=== PATIENT | female | born 1965 | race Caucasian/White ===

== ENCOUNTER 2024-07-08 20:07 | Inpatient (IN) | payer SELFPAY ==
[2024-07-08 20:17] VITALS: PULSE 110; O2SAT 96
--- NOTE | 2024-07-08 20:17 | PC.NURSE ---
[facility] @[facility]14
--- NOTE | 2024-07-08 20:32 | XR_ITS ---
PROCEDURE INFORMATION: Exam: XR Chest Exam date and time: 07/08/2024 9:47 PM Age: 58 years old Clinical indication: Pain; Chest pressure; Additional info: SOB TECHNIQUE: Imaging protocol: Radiologic exam of the chest. Views: 1 view. COMPARISON: No relevant prior studies available. FINDINGS: Lungs: Underlying interstitial markings/fibrotic changes most pronounced in right mid to lower lung zones. Chronic right pulmonary volume loss. No consolidation. Pleural spaces: Likely chronic right pleural thickening.No pneumothorax. Heart/Mediastinum: Unremarkable. No cardiomegaly. Bones/joints: Unremarkable. IMPRESSION: Likely chronic changes.
--- NOTE | 2024-07-08 20:32 | XR_ITS ---
PROCEDURE INFORMATION: Exam: XR Right Hip Exam date and time: 07/08/2024 9:47 PM Age: 58 years old Clinical indication: Condition or disease; Abscess; Other: Large wound on lateral hip; Additional info: Right hip pain TECHNIQUE: Imaging protocol: Radiologic exam of the right hip. Views: 2 or 3 views hip with pelvis when performed. COMPARISON: CR XR HIP RT 2-3V W/PELVIS 07/08/2024 9:47 PM FINDINGS: Bones/joints: Diffuse, poorly defined sclerotic lesions throughout visualized bony pelvis and lumbosacral spine. No acute cortical disruption or fracture line identified. Osteopenia. Anatomic alignment. Soft tissues: No radiopaque foreign body. IMPRESSION: 1. Diffuse sclerotic lesions suspicious for metastases. 2. No soft tissue radiopaque foreign body or discrete air collection identified by radiographs.
--- NOTE | 2024-07-08 20:41 | P.HP_ITS ---
<Statement entered by Luis Daniel Saenz MD - 07/09/24 14:14> Personally interviewed, examined patient and agree with plan of care as outlined by the [employer]. History of Present Illness *Admission Date: 07/08/24 *Reason for visit:: NSTEMI *History of present illness: This is a 58-year-old female who has a past medical history significant for diabetes, hypertension, breast cancer, COPD who presents from [facility] due to being found down for 3 days. Due to patient being found down for 3 days, she was transition to [facility] for evaluation. While at [facility], patient was noted to have a high troponin of 370, she was positive for urinary tract infection, and patient CPK was elevated. Due to these findings, patient was transition to p.o. tomorrow for further management. During my evaluation of the patient, patient states she fell 3 days ago. She states she slid out of the bed and just laid on the floor. She states she remembers the fall. She states that she attempted to get up multiple times but could not get up. Her offered to help but she did not accept his help. She states he would bring her supplement to eat or drink. She states that she has been having some lower extremity weakness for some time. She does not endorse to getting progressively worse she just notes that it has been there for prolonged period of time. She also voices having some pain to her right hip. Patient states she has chronic pain to her right hip but she noticed that it was more intense after a fall. She is currently denying any syncope, lightheadedness, dizziness, chest pain, shortness of breath, dyspnea, nausea, vomiting, PND, orthopnea, or diarrhea. Additional pertinent vitals obtained at [facility] include a potassium of 3.4, blood glucose of 190, calcium of 12, total bilirubin 1.9, white blood cells too numerous to count with urinalysis and urinalysis positive for nitrates, EKG showed a sinus tach, QTc of 406, Q waves in the inferior leads, possible left ventricular hypertrophy, biphasic T waves in the anterolateral, normal axis, alkaline phosphatase 113, and troponin was 372. [facility] Disclaimer: The information contained in this section may have been updated after the patient was seen, as this information can be updated by other users. Social History Smoking Status: Current every day smoker alcohol intake: never current occupational status: unemployed Travel in the last 8 weeks: None Review of Systems Review of Systems Review of systems:: pertinent systems reviewed and negative unless documented below Constitutional Constitutional: Reports poor appetite Eyes Eyes: Reports blurry vision and Reports loss of vision ENT Ears, Nose, Mouth, and Throat: Reports system reviewed and no additional complaints, except as documented *Cardiovascular Cardiovascular: Reports system reviewed and no additional complaints, except as documented *Respiratory Respiratory: Reports cough *Gastrointestinal Gastrointestinal: Reports system reviewed and no additional complaints, except as documented *Genitourinary Genitourinary: Reports system reviewed and no additional complaints, except as documented *Musculoskeletal Musculoskeletal: Reports atrophy and Reports muscle weakness Integumentary/Breasts Skin/Breast: Reports dry skin, Reports hirsutism and Reports skin ulcer *Neurologic Neurologic: Reports loss of vision Endocrine Endocrine: Reports system reviewed and no additional complaints, except as documented Hematologic/Lymphatic Hematologic/Lymphatic: Reports system reviewed and no additional complaints, except as documented Allergic/Immunologic Allergic/Immunologic: Reports system reviewed and no additional complaints, except as documented Meds Home Medications and Allergies Home Medications ?Medication ?Instructions ?Recorded ?Confirmed ?Type No Known Home Medications 07/08/24 07/08/24 History New Prescriptions to Start Prescriptions: Allergies Allergy/AdvReac Type Severity Reaction Status Date / Time INGREDIENT: NO KNOWN - NO Allergy Unknown Uncoded 05/26/17 15:19 KNOWN DRUG ALLERGY Exam Constitutional Constitutional: no acute distress, disheveled and cooperative *Routine HEENT Exam Head: Present normocephalic Eye: Present EOMI ENT: Present mucous membranes moist Comments: Right eye blindness *Routine Neck Exam Neck: Present supple and trachea midline *Routine Respiratory Exam Respiratory: Present CTA bilaterally, normal respiratory effort, able to speak in complete sentences and symmetric chest movement *Routine Cardiovascular Exam Cardiovascular: Present RRR, Normal S1 and Normal S2 *Routine Abdominal Exam Abdominal: Present soft and normoactive bowel sounds *Routine Rectal Exam Rectal:: deferred *Routine Genitalia Exam Genitalia:: deferred *Routine Extremities Exam Extremities: Present extremity cold to touch Comments: Capillary refills greater than 3 seconds Routine Back/Spine/Pelvis Exam Pelvis: Present buttock tenderness Back image: 2 1. Deep tissue injury *Routine Skin Exam Skin: Present dry and wounds Comments: Patient has deep tissue wounds to entire buttocks *Routine Neurological Exam Neurological: Present alert, oriented X3 and CN II-XII intact Routine Psychiatric Exam Psychiatric: Present normal affect, cooperative, good insight and good judgment H&P: Result Impressions This is a 58-year-old female who presents from [facility] after being found down for 3 days. Patient had elevated CPK and elevated troponin and was diagnosed with NSTEMI. Patient voicing decreased to bilateral lower extremity weakness. She is without any syncope or trauma to the spine. Patient is currently without any focal weakness or deficit she does have some muscle wasting to bilateral lower extremities. Assessment and Plan *Assessment and plan (1) NSTEMI (non-ST elevated myocardial infarction): Status: Acute Category: Medical Code(s): I21.4 - Non-ST elevation (NSTEMI) myocardial infarction (2) Rhabdomyolysis: Status: Acute Category: Medical Code(s): M62.82 - Rhabdomyolysis (3) Fall: Status: Acute Category: Medical Code(s): W19.XXXA - Unspecified fall, initial encounter (4) Dehydration: Status: Acute Category: Medical Code(s): E86.0 - Dehydration (5) Right hip pain: Status: Acute Category: Medical Code(s): M25.551 - Pain in right hip (6) Weakness: Status: Acute Category: Medical Code(s): R53.1 - Weakness (7) Deep tissue injury: Status: Acute Category: Medical Code(s): T14.8XXA - Other injury of unspecified body region, initial encounter (8) UTI (urinary tract infection): Status: Acute Category: Medical Code(s): N39.0 - Urinary tract infection, site not specified Plan Assessment: NSTEMI -Will obtain EKG -Trend troponin 1 every 6 hours -Will give therapeutic dosing of Lovenox 1 mg/kg of body weight twice daily -Consult cardiology -2D echo Rhabdomyolysis -Will trend CPK -Normal saline at 150 mL an hour -Promote early mobility Dehydration -Normal saline at 150 mL down Right hip pain -Will obtain plain views of the pelvis Weakness -Will obtain CT scan of the lumbar spine without any contrast -Physical therapy -Occupational Therapy Deep tissue injury -Skin protocol -Turn every 2 -Place protective barrier Urinary tract infection -Rocephin 1 g daily -Obtain urinalysis with reflex micro [facility]: [facility] Up to chair twice daily Fall precaution SCDs to bilateral lower extremity Daily weight Straight cath x 1 Vital signs every 4 hours Cardiac/1800 ADA diet Chest x-ray Obtain CPK, CMP, CBC, magnesium, PT/INR now CBC/BMP daily Sliding scale insulin before meals and at bedtime with mild scale coverage 2 mg morphine IV push every 2 hours as needed severe pain 21 mg nicotine patch daily 4 mg Zofran IV push to 8 hours. Nausea vomiting Full code We will trend patient's troponin 1 and likely this is a type II troponin leak however she may benefit from cath because she does have some risk factors to include diabetes and hypertension I have discussed this case with attending physician dr. Saenz
[2024-07-08 20:54] VITALS: BP 159/96; PULSE 105; RESP 18; TEMP 37.4; O2SAT 96; BMI 21.9
[2024-07-08 20:58] LABS: Basophils % 0.6 % (0.1-2.0); Eosinophils % 0.6 % (0.1-12.0); Hematocrit 43.7 % (37.0-47.0); Hemoglobin 13.9 g/dL (12.2-16.2); Lymphocytes # 1.4 K/mm3 (0.7-4.5); Lymphocytes % 20.8 % (10-50); Mean Corpuscular HGB Conc 31.8 g/dL (31.8-35.4); Mean Corpuscular Hemoglobin 27.7 pg (27.0-31.2); Mean Corpuscular Volume 87.2 fl (81-99); Mean Platelet Volume 9.7 fl (7.4-10.4); Monocytes # 0.5 K/mm3 (0.1-1.0); Monocytes % 6.6 % (1.7-9.3); Neutrophils # 4.9 K/mm3 (1.8-7.8); Neutrophils % 71.1 % (37.0-80.0); Platelet Count 253 K/mm3 (142-424); Red Blood Count 5.01 M/mm3 (4.20-5.40); Red Cell Distribution Width 13.8 % (11.5-17.5); White Blood Count 6.8 K/mm3 (4.8-10.8)
[2024-07-08 21:08] LABS: INR 1.06 (0.9-1.1); Prothrombin Time 11.5 seconds (9.2-12.1)
[2024-07-08 21:12] LABS: Alanine Aminotransferase 16 U/L (12-78); Albumin Level 3.6 g/dl (3.5-5.0); Albumin/Globulin Ratio 1.1 (1.1-1.8); Alkaline Phosphatase 347 U/L (38-126); Anion Gap 11.4 mEq/L (5-15); Aspartate Amino Transferase 32 U/L (14-36); Bilirubin,Total 1.3 mg/dl (0.2-1.3); Blood Urea Nitrogen 14 mg/dl (7-17); Calcium 10.4 mg/dl (8.4-10.2); Carbon Dioxide 26 mmol/L (22.0-30.0); Chloride 104 mmol/L (98-107); Estimated Glomerular Filt Rate 126 ml/min (>60); GFR (African American) 152 ML/MIN (>60); Globulin 3.2 g/dL (1.3-3.2); Glucose 142 mg/dl (74-100); Potassium 3.4 mmoL/L (3.5-5.1); Sodium 138 mmol/L (136-145); Total Protein,Serum 6.8 g/dl (6.3-8.2)
[2024-07-08 21:30] LABS: Creatinine Clearance Estimated 110 mL/min (50-200); Troponin I 0.23 ng/ml (0.00-0.034)
--- NOTE | 2024-07-08 21:30 | PC.NURSE ---
Lab reported critical troponin 0.23, Dr. Disla notified
--- NOTE | 2024-07-08 21:34 | ECG_ITS ---
APPROVED REPORT Exam: Resting ECG HR:131 bpm ECG Measurements Heart Rate 131 AXES QRSd 104 QRS 12 QT 298 T 98 QTc 375 Conclusion ATRIAL FIBRILLATION WITH RAPID VENTRICULAR RESPONSE ST ELEVATION, CONSIDER INFERIOR INJURY [MARKED ST ELEVATION W/O NORMALLY INFLECTED T-WAVE IN II/aVF] ACUTE MD UNCONFIRMED REPORT Electronically signed by : Twin Beach MD 07/10/2024 12:56:06
[2024-07-08] MEDS: ENOXAPARIN 100MG/ML SYRINGE 60 MG SUBCUT (21:53)
[2024-07-08 21:59] LABS: Creatine Kinase 64 U/L (30-135)
--- NOTE | 2024-07-08 22:04 | PC.NURSE ---
Pt discharged off medr floor to ICU unit via bed @22:04
--- NOTE | 2024-07-08 22:09 | CT_ITS ---
PROCEDURE INFORMATION: Exam: CTA Chest With Contrast Exam date and time: 07/08/2024 11:46 PM Age: 58 years old Clinical indication: Shortness of breath; Additional info: SOB TECHNIQUE: Imaging protocol: Computed tomographic angiography of the chest with contrast. Exam focused on the arteries. 3D rendering (Not supervised by radiologist): MIP and/or 3D reconstructed images were created by the technologist. Radiation optimization: All CT scans at this facility use at least one of these dose optimization techniques: automated exposure control; mA and/or kV adjustment per patient size (includes targeted exams where dose is matched to clinical indication); or iterative reconstruction. Contrast material: ISOVUE; Contrast volume: 70 ml; Contrast route: INTRAVENOUS (IV); COMPARISON: CR XR CHEST PORTABLE 07/08/2024 9:47 PM FINDINGS: Pulmonary arteries: No central or segmental pulmonary arterial intraluminal filling defect identified. Aorta: Atherosclerotic calcification of thoracic aorta without aneurysm or dissection. Thyroid: Asymmetrically enlarged and heterogeneous right thyroid gland. Lungs: Chronic right pulmonary volume loss with rightward mediastinal shift. Underlying emphysematous changes. Patchy air trapping. Pleural spaces: Semi concentric irregular chronic right pleural thickening with chronic rounded atelectasis abutting posterior pleura measuring 8.1 x 3.4 x 4.5 cm. Heart: Unremarkable. No cardiomegaly. No pericardial effusion. Coronary arteries: Atherosclerotic calcification of coronary arteries. Lymph nodes: Enlarged retroperitoneal lymph nodes in visualized abdomen. Bones/joints: Diffuse sclerotic lesions throughout visualized osseous structures. Soft tissues: Unremarkable. IMPRESSION: 1. No central or segmental pulmonary arterial embolism identified. 2. Chronic semi concentric irregular right pleural thickening with large rounded atelectasis and secondary pulmonary volume loss with rightward mediastinal shift. 3. Air trapping on underlying emphysematous changes. 4. Etiology indeterminate diffuse sclerotic lesions suspicious for metastases and suspected retroperitoneal lymphadenopathy in visualized abdomen. 5. Heterogeneously enlarged right thyroid lobe possibly reflecting underlying nodule. Consider nonurgent sonographic further imaging evaluation is clinically indicated. COMMENTS: The presence of pulmonary emphysema on CT is an independent risk factor for lung cancer. In the absence of a history or active diagnosis of lung cancer, it is recommended that this patient with emphysema be evaluated for enrollment in a low dose CT lung cancer screening program.
[2024-07-08 22:11] VITALS: PULSE 130
[2024-07-08] MEDS: ESMOLOL HCL 100 MG/10 ML VIAL 29 MG IV (22:18)
[2024-07-08] MEDS: ESMOLOL HCL IN STERILE WATER 2,500 MG/250 ML PIGGYBACK 17.4 MG IV (22:20)
--- NOTE | 2024-07-08 22:30 | PC.NURSE ---
Report given to NAOMI Ramos
[2024-07-08] MEDS: 0.9 % SODIUM CHLORIDE 1000ML 1,000 ML 150 ML IV (22:37)
[2024-07-08 22:41] LABS: POC Glucose,Bedside 145 (70-110)
--- NOTE | 2024-07-08 22:52 | P.EN_ITS ---
Per my interpretation, EKG obtained shows an inferior infarct there is ST segment elevation in leads II, III and aVF with reciprocal changes in leads 4 5; contacted paperhanger assistant on-call; he recommended starting esmolol drip and repeating EKG once heart rates at 70. Discussed findings with attending. Will implement the interventions paperhanger assistant has provide. And repeat EKG once heart rates in the 70s
[2024-07-08] MEDS: NICOTINE 21MG/24HR PATCH 21 MG TD (22:58)
[2024-07-08 23:00] VITALS: BP 149/84; PULSE 91; RESP 20; O2SAT 97
--- NOTE | 2024-07-08 23:07 | PC.WOUNDNOTE ---
right hip and buttocks left buttock
[2024-07-08] MEDS: SODIUM CHLORIDE 0.9% 10ML SYR (RAD ONLY) 10 ML IV (23:48)
[2024-07-08] MEDS: IOPAMIDOL-370 (76%);100ML BOTTLE 70 ML IV (23:48)
[2024-07-08] MEDS: 0.9 % SODIUM CHLORIDE 50 ML VIAL IV (23:49)
[2024-07-09] VITALS (26 sets, daily range): BP systolic 129–181; BP diastolic 69–97; PULSE 70–100; RESP 12–23; TEMP 36.6–37; O2SAT 1–100; BMI 22.4
[2024-07-09 03:28] LABS: Microscopic, Urine URINE MICROSCOPIC (MICROSCOPIC)
[2024-07-09 03:34] LABS: Appearance,Urine CLOUDY (Clear); Blood, Urine 3+ (Negative); Color,Urine AMBER (Yellow); Glucose,Urine (UA) TRACE (Negative); Ketones,Urine 1+ (Negative); Leukocyte Esterase,Urine 1+ (Negative); Nitrate,Urine POSITIVE (Negative); PH,Urine 5.5 (5.0-8.5); Protein,Urine 2+ (Negative)
[2024-07-09 03:37] LABS: Bilirubin,Urine 1+ (Negative)
[2024-07-09 03:45] LABS: Bacteria,Urine 1+ /lpf; RBC,Urine 20-50 #/hpf (0-3); Squamous Epithelial Cell,Urine Occasional #/hpf (0-5)
[2024-07-09] MEDS: ESMOLOL HCL IN STERILE WATER 2,500 MG/250 ML PIGGYBACK 34.81 MG IV (04:47)
[2024-07-09 05:59] LABS: Basophils % 0.5 % (0.1-2.0); Lymphocytes # 1.3 K/mm3 (0.7-4.5); Monocytes # 0.5 K/mm3 (0.1-1.0)
[2024-07-09 06:03] LABS: Eosinophils # 0.1 K/mm3 (0.0-0.4); Eosinophils % 0.8 % (0.1-12.0); Hematocrit 40.9 % (37.0-47.0); Hemoglobin 12.8 g/dL (12.2-16.2); Lymphocytes % 19.7 % (10-50); Mean Corpuscular HGB Conc 31.3 g/dL (31.8-35.4); Mean Corpuscular Hemoglobin 27.8 pg (27.0-31.2); Mean Corpuscular Volume 88.7 fl (81-99); Mean Platelet Volume 10.1 fl (7.4-10.4); Neutrophils # 4.7 K/mm3 (1.8-7.8); Neutrophils % 71.5 % (37.0-80.0); Platelet Count 234 K/mm3 (142-424); Red Blood Count 4.61 M/mm3 (4.20-5.40); Red Cell Distribution Width 13.9 % (11.5-17.5); White Blood Count 6.6 K/mm3 (4.8-10.8)
[2024-07-09 06:04] LABS: Chloride 103 mmol/L (98-107); Sodium 136 mmol/L (136-145)
[2024-07-09 06:05] LABS: Potassium 3.3 mmoL/L (3.5-5.1)
[2024-07-09 06:07] LABS: Blood Urea Nitrogen 12 mg/dl (7-17); Creatinine Clearance Estimated 137 mL/min (50-200); Estimated Glomerular Filt Rate 163 ml/min (>60); GFR (African American) 197 ML/MIN (>60)
[2024-07-09 06:08] LABS: Anion Gap 10.3 mEq/L (5-15); Calcium 9.9 mg/dl (8.4-10.2); Carbon Dioxide 26 mmol/L (22.0-30.0); Creatine Kinase 63 U/L (30-135); Glucose 155 mg/dl (74-100)
--- NOTE | 2024-07-09 06:36 | PC.NURSE ---
pt alert and oriented, pt has intermittent cough, rhonci on left lung 3lpm via nasal cannula. pt has purewick in place. pt has wounds noted to bilateral gluteaus dressings in place. pts spouse at bedside. call light within reach
[2024-07-09] MEDS: humaLOG 100 UNITS/ML 10ML VIAL (SSI) SUBCUT (06:45)
--- NOTE | 2024-07-09 08:22 | PC.NURSE ---
pt room air O2 saturation is 90% at rest.
[2024-07-09 09:10] LABS: Troponin I 0.15 ng/ml (0.00-0.034)
--- NOTE | 2024-07-09 09:22 | XR_ITS ---
PROCEDURE INFORMATION: Exam: XR Left Femur Exam date and time: 07/09/2024 9:22 AM Age: 58 years old Clinical indication: Injury or trauma; Fall; Blunt trauma; Thigh or upper leg; Left; Additional info: Post fall TECHNIQUE: Imaging protocol: Radiologic exam of the left femur. Views: 2 views. COMPARISON: No relevant prior studies available. FINDINGS: Bones/joints: Unremarkable. No acute fracture. Soft tissues: Unremarkable. IMPRESSION: No acute findings.
--- NOTE | 2024-07-09 09:22 | XR_ITS ---
PROCEDURE INFORMATION: Exam: XR Right Femur Exam date and time: 07/09/2024 9:22 AM Age: 58 years old Clinical indication: Injury or trauma; Fall; Blunt trauma; Thigh or upper leg; Right; Additional info: Post fall TECHNIQUE: Imaging protocol: Radiologic exam of the right femur. Views: 2 views. COMPARISON: CR XR HIP RT 2-3V W/PELVIS 07/08/2024 9:47 PM FINDINGS: Bones/joints: Unremarkable. No acute fracture. Soft tissues: Unremarkable. IMPRESSION: No acute findings.
[2024-07-09 09:28] LABS: Chol/HDL Ratio 4.8 (1-3.5); Cholesterol 125 mg/dl (140-200); HDL Cholesterol 26 mg/dl (40-60); Triglycerides 114 mg/dl (30-150); VLDL Cholesterol 23 mg/dL (0-40)
[2024-07-09 09:29] LABS: Thyroid Stimulating Hormone 1.53 uIU/mL (0.465-4.68)
[2024-07-09] MEDS: METOPROLOL TARTRATE 25MG TABLET 25 MG PO ×2 (09:35→20:24)
[2024-07-09] MEDS: DOCUSATE SODIUM 100 MG CAPSULE PO (09:35)
[2024-07-09] MEDS: ASPIRIN EC 81MG TABLET 81 MG PO (09:35)
[2024-07-09] MEDS: ATORVASTATIN 40MG TABLET 40 MG PO (09:35)
[2024-07-09] MEDS: ENOXAPARIN 60MG/0.6ML SYRINGE 60 MG SUBCUT ×2 (09:35→22:00)
--- NOTE | 2024-07-09 09:36 | HMH.PHAINT1 ---
Pharmacy Intervention Comments: MEDICATION RECONCILIATION COMPLETE. PER DAJA SALGADO, PATIENT STATES SHE DOES NOT TAKE ANY MEDICATIONS AT HOME.
[2024-07-09] MEDS: ACETAMINOPHEN 325MG TAB 650 MG PO (09:37)
[2024-07-09] MEDS: 0.9 % SODIUM CHLORIDE 1000ML 1,000 ML 150 ML IV (09:37)
[2024-07-09 09:39] LABS: Direct LDL Cholesterol 68.22 mg/dL (100-129)
--- NOTE | 2024-07-09 09:40 | ECG_ITS ---
APPROVED REPORT Exam: Resting ECG HR:96 bpm ECG Measurements Heart Rate 96 AXES [place] 164 P 60 QRSd 110 QRS -12 QT 341 T 125 QTc 394 Conclusion SINUS RHYTHM POSSIBLE INFERIOR MYOCARDIAL INFARCTION , PROBABLY OLD [30 ms Q WAVE IN II/aVF] MODERATE T-WAVE ABNORMALITY, CONSIDER LATERAL ISCHEMIA [-0.1+ mV T-WAVE IN I/aVL/V5/V6] ABNORMAL ECG UNCONFIRMED REPORT Electronically signed by : Twin Beach MD 07/10/2024 12:55:49
[2024-07-09] MEDS: CEFTRIAXONE SODIUM 1 GM in 0.9 % SODIUM CHLORIDE 50 ML IV (09:45)
[2024-07-09 09:48] LABS: Vitamin B12 620 pg/mL (239-931)
[2024-07-09 10:16] LABS: Hemoglobin A1C 7.4 % (4.0-6.0)
--- NOTE | 2024-07-09 10:20 | PC.NURSE ---
All care and documentation for pt by Meg Jimenez RN was reviewed by Ha Bhandari. All titrations of medications were completed under the direct supervision of Tiffany SALGADO
[2024-07-09 11:09] LABS: POC Glucose,Bedside 96 (70-110)
--- NOTE | 2024-07-09 11:25 | PC.NURSE ---
Addendum entered by Rachel Jimenez RN 07/09/24 11:39: ra sat > 90% while awake. while sleeping sats drop around 88%. 1l nc placed on pt while at sleeping with sats currently at 96%. Original Note: per ce toney esmolol. hr 78 b/p 131/73
--- NOTE | 2024-07-09 13:20 | HMH.PTEV ---
Physical Therapy Evaluation Rehab PT IP Evaluation Start: 07/08/24 20:32 Freq: ONCE Status: Active Protocol: Document 07/09/24 13:01 MELINDATARI (Rec: 07/09/24 13:20 EVER [id number]) Subjective/History History History Per H&P, This is a 58-year- old female who has a past medical history significant for diabetes, hypertension, breast cancer, COPD who presents from [facility] due to being found down for 3 days. Due to patient being found down for 3 days, she was transition to [facility] for evaluation. While at [facility], patient was noted to have a high troponin of 370, she was positive for urinary tract infection, and patient CPK was elevated. Due to these findings, patient was transition to p.o. tomorrow for further management. During my evaluation of the patient, patient states she fell 3 days ago. She states she slid out of the bed and just laid on the floor. She states she remembers the fall. She states that she attempted to get up multiple times but could not get up. Her offered to help but she did not accept his help. She states he would bring her supplement to eat or drink. She states that she has been having some lower extremity weakness for some time. She does not endorse to getting progressively worse she just notes that it has been there for prolonged period of time. She also voices having some pain to her right hip. Patient states she has chronic pain to her right hip but she noticed that it was more intense after a fall. She is currently denying any syncope, lightheadedness, dizziness, chest pain, shortness of breath, dyspnea, nausea, vomiting, PND, orthopnea, or diarrhea. Additional pertinent vitals obtained at [facility] include a potassium of 3.4, blood glucose of 190, calcium of 12, total bilirubin 1.9, white blood cells too numerous to count with urinalysis and urinalysis positive for nitrates, EKG showed a sinus tach, QTc of 406, Q waves in the inferior leads, possible left ventricular hypertrophy, biphasic T waves in the anterolateral, normal axis, alkaline phosphatase 113, and troponin was 372. Subjective Subjective The pt is orientedx3. Family present. Pt and pt's provide differing subjective histories. Pt reports she was lying on the floor for 3 days prior to going to the hospital . Her reports that she was only there for a couple of hours. Pt reports that she has not attempted to walk in months. Reports that her legs are not strong enough. Reports that prior to that, she was using a walker. She reports that for the past month she has not gotten out of bed at all. New diagnosis of cancer in past 12 No months? Rehab PT IP Eval Objective Appearance Patient Behavior Appropriate,Patient Baseline Patient Orientation Person,Place,Time,Birthday Difficulty following instructions none Speech Pattern Patient Baseline Ambulation Patient Able to Ambulate No Balance Ability to Arise Able, uses arms to help Sitting Balance Leans or slides in chair Standing Balance Unsteady Dynamic Sitting Balance Ability Poor Dynamic Standing Balance Ability Poor Transfers Bed Transfer Ability Maximum x 1 (75% assist) Sit to Stand Bed Transfer Ability Maximum x 1 (75% assist) Rehab PT IP prob,goals,plan Problems Date of Evaluation: 07/09/24 PT IP Problems Bed Mobility,Transfers,Gait, Balance Rehab Potential Rehab Potential Poor Equipment Needs Assistive Devices Rolling / Wheeled Walker Plan PT Intervention Plan Bed Mobility,Transfers,Gait, Balance,Self care,Safety, Therapeutic Exercise PT Plan Frequency BID Duration LOS Discharge Goals Bed Transfer Ability Minimal x 1 (25% assist) Sit to Stand Chair Transfer Ability Minimal x 1 (25% assist) Ambulation Assistive Device Rolling Walker Ambulation Distance (feet) 10 Discharge Plan PT Discharge Plan PT is recommending placement for further therapy upon discharge at this time. The pt was able to stand at bedside with Mod-Max assist at this time but was unable to ambulate during initial evaluation. Pt is a significant fall risk and is unfit for discharge to home at this time. Skilled PT is indicated for this pt during her acute stay. Eval Complexity Eval Charge Codes 30778 - High Complexity PHYSICIAN CERTIFICATION: I certify the specified therapy services for Destiney Lancaster are required, authorized, and reviewed every 30 days.
[2024-07-09 16:28] LABS: POC Glucose,Bedside 158 (70-110)
[2024-07-09 20:01] LABS: POC Glucose,Bedside 160 (70-110)
--- NOTE | 2024-07-09 22:16 | EXP.PN ---
Subjective *Date: 07/15/24 *Time: 18:25 Exam Data for Last 24 hours Vital signs and Labs for Last 24 Hours: Temp Pulse Resp BP Pulse Ox O2 Del Method O2 Flow Rate 98.6 F 86 21 178/96 H 97 Nasal Cannula 1 07/09/24 20:00 07/09/24 22:00 07/09/24 22:00 07/09/24 22:00 07/09/24 22:00 07/09/24 22:00 07/09/24 22:00 Laboratory Results - last 24 hr 07/08/24 22:30: POC Glucose 145 H 07/09/24 03:20: Urine Color Sandra, Urine Appearance Cloudy, Urine pH 5.5, Ur Specific [place] 1.020, Urine Protein 2+ A, Urine Glucose (UA) Trace, Urine Ketones 1+, Urine Blood 3+ A, Urine Nitrate Positive A, Urine Bilirubin 1+ A, Urine Urobilinogen 4.0, Ur Leukocyte Esterase 1+ A, Urine RBC 20-50, Urine WBC 10-20, Ur Squamous Epith Cells Occasional, Urine Bacteria 1+ 07/09/24 05:30: WBC 6.6, RBC 4.61, Hgb 12.8, Hct 40.9, MCV 88.7, MCH 27.8, MCHC 31.3 L, RDW 13.9, Plt Count 234, MPV 10.1, Neut % (Auto) 71.5, Lymph % (Auto) 19.7, Wells % (Auto) 7.0, Eos % (Auto) 0.8, Baso % (Auto) 0.5, Neut # (Auto) 4.7, Lymph # (Auto) 1.3, Wells # (Auto) 0.5, Eos # (Auto) 0.1, Baso # (Auto) 0.0, Sodium 136, Potassium 3.3 L, Chloride 103, Carbon Dioxide 26, Anion Gap 10.3, BUN 12, Creatinine 0.40 L, Estimated Creat Clear 137, Estimated GFR 163, Est GFR ( Amer) 197 D, Glucose 155 H, Calcium 9.9, Total Creatine Kinase 63, Troponin I 0.15 H, Triglycerides 114, Cholesterol 125 L, LDL Cholesterol Direct 68.22 L, VLDL Cholesterol 23, HDL Cholesterol 26 L, Cholesterol/HDL Ratio 4.8 H, Vitamin B12 620, TSH 1.53 07/09/24 07:05: Hemoglobin A1c 7.4 H 07/09/24 11:02: POC Glucose 96 07/09/24 16:20: POC Glucose 158 H 07/09/24 19:54: POC Glucose 160 H I & O for Last 24 hours: Intake & Output 07/06/24 07/07/24 07/08/24 07/09/24 23:59 23:59 23:59 23:59 Intake Total . / 06.234.998 / 2023.99 Output Total 350 / 350 Balance . / 06.23 1674.998 / 1674.998 Weight 58.014 kg 59.557 kg Constitutional Constitutional: no acute distress *Routine HEENT Exam Head: Present normocephalic Eye: Present EOMI and PERRL ENT: Present mucous membranes moist *Routine Neck Exam Neck: Present supple; Absent lymphadenopathy *Routine Respiratory Exam Respiratory: Present CTA bilaterally *Routine Cardiovascular Exam Cardiovascular: Present RRR *Routine Abdominal Exam Abdominal: Present soft and normoactive bowel sounds; Absent tenderness *Routine Extremities Exam Extremities: Absent cyanosis, clubbing or edema Comments: Significant muscular atrophy, deconditioning of lower extremities. *Routine Skin Exam Skin: Present warm; Absent rash *Routine Neurological Exam Neurological: Present alert and oriented X3 Assessment and Plan *Assessment and plan (1) STEMI (ST elevation myocardial infarction): Status: Acute Category: Medical Code(s): I21.3 - ST elevation (STEMI) myocardial infarction of unspecified site Plan Destiney Lancaster is a 58-year-old female who was admitted for STEMI type II, severe physical deconditioning. Arrived as a transfer from [facility]. #STEMI type II ? On arrival, patient had ST elevation in lead III with reciprocal findings. Troponins peaked at 0.23, downtrending. Chest pain-free. ? Dr. Muller was consulted overnight, and given that the EKG showed A-fib RVR he recommended starting esmolol drip. Repeat EKG showed NSR. Troponins downtrending. ? Started metoprolol to tartrate 25 mg twice daily, weaned off esmolol drip. ? Continue aspirin 81 mg, atorvastatin 80 mg. ? Follow-up ECHO on Thursday. ? Tentatively plan for [facility] on Thursday. #Severe physical deconditioning ? PT/OT consulted, recommended SNF. However, patient is not keen at this time. Will revisit this conversation tomorrow. She prefers to go home. Lives with . #Suspicious pleuritic lesions ? Found on CTA, possibly cancerous/metastatic. ? Pulmonology consulted, pending recommendations. #Enlarged right thyroid gland ? Follow-up thyroid ultrasound. TSH normal.
[2024-07-10] VITALS (22 sets, daily range): BP systolic 140–174; BP diastolic 63–88; PULSE 74–91; RESP 15–24; TEMP 36.3–37.4; O2SAT 90–99; BMI 22.4
[2024-07-10 07:12] LABS: CEA 18.9 ng/mL (0.0-4.7)
--- NOTE | 2024-07-10 07:58 | CT_ITS ---
PROCEDURE INFORMATION: Exam: CT Abdomen And Pelvis With Contrast Exam date and time: 07/10/2024 8:51 AM Age: 58 years old Clinical indication: Abdominal pain and other: Right hip; Additional info: Eval for mets, abnormal cta, high cea TECHNIQUE: Imaging protocol: Computed tomography of the abdomen and pelvis with contrast. Radiation optimization: All CT scans at this facility use at least one of these dose optimization techniques: automated exposure control; mA and/or kV adjustment per patient size (includes targeted exams where dose is matched to clinical indication); or iterative reconstruction. Contrast material: ISOVUE; Contrast volume: 75 ml; Contrast route: IV; COMPARISON: 1. CR XR HIP RT 2-3V W/PELVIS 07/08/2024 9:[address] dated 07/08/2024 FINDINGS: Lungs: Right lower lobe atelectasis/consolidation is re-identified. Pleural spaces: Small left pleural effusion new from prior chest CT. Liver: No focal hepatic lesions. Gallbladder and biliary ducts: Cholelithiasis noted without pericholecystic fluid/stranding. Pancreas: Normal. No ductal dilation. Spleen: Multiple splenic granulomas Adrenal glands: Nodular thickening of the left adrenal gland. Kidneys and ureters: Nephrograms are symmetric. Punctate nephrolithiasis. No hydroureteronephrosis on either side. No solid lesions. There is a simple cyst in the left kidney. Stomach and bowel: Unremarkable. No obstruction. No mucosal thickening. Appendix: No evidence of appendicitis. Intraperitoneal space: Unremarkable. No free air. No significant fluid collection. Vasculature: Major aortic branches are patent. Lymph nodes: Unremarkable. No enlarged lymph nodes. Urinary bladder: Urinary bladder is unremarkable. Status post hysterectomy. Bones/joints: Widespread mixed lytic/sclerotic osseous metastases noted. The cortex of the right iliac wing are dehiscent and multiple regions. There is a pathologic fracture in the right iliac wing (series 3, image 88). There is an additional pathologic fracture in the right parasymphyseal pubic tubercle. Soft tissues: Unremarkable. IMPRESSION: Widespread mixed lytic/sclerotic osseous metastases. The cortex of the right iliac wing are dehiscent and multiple regions. There is a pathologic fracture in the right iliac wing (series 3, image 88). There is an additional pathologic fracture in the right parasymphyseal pubic tubercle (series 3 image 108-111). COMMENTS: Consistent with the [employer]'s Incidental Findings Committee white paper (J Am Jerry Radiol 2018): Any incidental renal lesion less than 1 cm or classified as too small to characterize, or any incidental cystic renal lesion characterized as simple-appearing, is likely benign. No follow-up imaging is recommended for these lesions per consensus recommendations based on imaging criteria.
[2024-07-10 08:16] LABS: Basophils % 0.5 % (0.1-2.0); Eosinophils # 0.1 K/mm3 (0.0-0.4); Eosinophils % 1.8 % (0.1-12.0); Hematocrit 44.1 % (37.0-47.0); Hemoglobin 13.7 g/dL (12.2-16.2); Lymphocytes # 0.7 K/mm3 (0.7-4.5); Lymphocytes % 18.2 % (10-50); Mean Corpuscular HGB Conc 31.1 g/dL (31.8-35.4); Mean Corpuscular Hemoglobin 27.5 pg (27.0-31.2); Mean Corpuscular Volume 88.6 fl (81-99); Mean Platelet Volume 10.4 fl (7.4-10.4); Monocytes # 0.2 K/mm3 (0.1-1.0); Monocytes % 4.9 % (1.7-9.3); Neutrophils # 2.9 K/mm3 (1.8-7.8); Neutrophils % 74.1 % (37.0-80.0); Platelet Count 247 K/mm3 (142-424); Red Blood Count 4.98 M/mm3 (4.20-5.40); Red Cell Distribution Width 13.9 % (11.5-17.5); White Blood Count 3.9 K/mm3 (4.8-10.8)
[2024-07-10 08:30] LABS: Alanine Aminotransferase 14 U/L (12-78); Albumin Level 3.2 g/dl (3.5-5.0); Albumin/Globulin Ratio 1.1 (1.1-1.8); Alkaline Phosphatase 287 U/L (38-126); Anion Gap 7.4 mEq/L (5-15); Aspartate Amino Transferase 28 U/L (14-36); Bilirubin,Total 0.8 mg/dl (0.2-1.3); Blood Urea Nitrogen 15 mg/dl (7-17); Calcium 9.8 mg/dl (8.4-10.2); Carbon Dioxide 30 mmol/L (22.0-30.0); Chloride 104 mmol/L (98-107); Creatinine Clearance Estimated 112 mL/min (50-200); Estimated Glomerular Filt Rate 126 ml/min (>60); GFR (African American) 152 ML/MIN (>60); Glucose 122 mg/dl (74-100); Potassium 3.4 mmoL/L (3.5-5.1); Sodium 138 mmol/L (136-145); Total Protein,Serum 6.2 g/dl (6.3-8.2)
[2024-07-10] MEDS: IOPAMIDOL-370 (76%);100ML BOTTLE 75 ML IV (09:11)
[2024-07-10] MEDS: SODIUM CHLORIDE 0.9% 10ML SYR (RAD ONLY) 10 ML IV (09:11)
[2024-07-10] MEDS: ASPIRIN EC 81MG TABLET 81 MG PO (10:34)
[2024-07-10] MEDS: ENOXAPARIN 60MG/0.6ML SYRINGE 60 MG SUBCUT (10:34)
[2024-07-10] MEDS: ATORVASTATIN 40MG TABLET 40 MG PO (10:34)
[2024-07-10] MEDS: METOPROLOL TARTRATE 25MG TABLET 25 MG PO ×2 (10:34→21:20)
[2024-07-10] MEDS: DOCUSATE SODIUM 100 MG CAPSULE PO (10:34)
[2024-07-10 11:59] LABS: POC Glucose,Bedside 98 (70-110)
[2024-07-10 16:46] LABS: POC Glucose,Bedside 139 (70-110)
--- NOTE | 2024-07-10 18:15 | PC.NURSE ---
pt has remained in bed this shift. c/o pain when rotated to the r side, but once on her r side, pt states she is comfortable. states the moving is what hurts. pt also has various skin issues/discoloration in gluteal cleft leading into perineal area. pt has areas of scaly dark skin on tejal buttocks and areas of shearing noted to right hip as well. lungs contain scattered wheezes t/o pt is able to transition to ra when awake, but requires 2lpm when flat on her back and/or asleep. pt is voiding small amounts of dark colored urine via purwick since admission
--- NOTE | 2024-07-10 18:16 | PC.NURSE ---
pt was asked if she wanted to sit up on the side of bed for dinner. pt refused and stated I just do not want to eat pt denies any discomfort. This SRNA sat with pt to offer a listening ear and support. pt states she is comfortable on her left side and doesn't want to be repositioned. pure wick was changed (QSHIFT) and is functioning properly. no requests voiced at this time. call light is within reach and bed alarm is set.
--- NOTE | 2024-07-10 20:59 | EXP.PN ---
Subjective *Date: 07/10/24 *Time: 20:59 Interval history: Patient is doing well today, unfortunately continues to be bedbound due to severe physical deconditioning. CT findings highly concerning for diffuse metastatic cancer, has a history of lung and colon cancer. After extensive conversations, patient wants to pursue hospice care. Case management consulted to assist with hospice discussions. Exam Data for Last 24 hours Vital signs and Labs for Last 24 Hours: Temp Pulse Resp BP Pulse Ox O2 Del Method O2 Flow Rate 98.4 F 81 15 160/87 H 96 Nasal Cannula 2 07/10/24 20:00 07/10/24 20:00 07/10/24 20:00 07/10/24 20:00 07/10/24 20:00 07/10/24 20:00 07/10/24 20:00 Laboratory Results - last 24 hr 07/09/24 07:05: Carcinoembryonic Ag 18.9 H 07/10/24 06:30: WBC 3.9 L D, RBC 4.98, Hgb 13.7, Hct 44.1, MCV 88.6, MCH 27.5, MCHC 31.1 L, RDW 13.9, Plt Count 247, MPV 10.4, Neut % (Auto) 74.1, Lymph % (Auto) 18.2, Forrest % (Auto) 4.9, Eos % (Auto) 1.8, Baso % (Auto) 0.5, Neut # (Auto) 2.9, Lymph # (Auto) 0.7, Forrest # (Auto) 0.2, Eos # (Auto) 0.1, Baso # (Auto) 0.0, Sodium 138, Potassium 3.4 L, Chloride 104, Carbon Dioxide 30, Anion Gap 7.4, BUN 15, Creatinine 0.50 L D, Estimated Creat Clear 112, Estimated GFR 126, Est GFR ( Amer) 152 D, Glucose 122 H, Calcium 9.8, Total Bilirubin 0.8, AST 28, ALT 14, Alkaline Phosphatase 287 H, Total Protein 6.2 L, Albumin 3.2 L D, Globulin 3.0, Albumin/Globulin Ratio 1.1, Folate 4.00 07/10/24 11:51: POC Glucose 98 07/10/24 16:38: POC Glucose 139 H I & O for Last 24 hours: Intake & Output 07/07/24 07/08/24 07/09/24 07/10/24 23:59 23:59 23:59 23:59 Intake Total .06.23 2024.998 / 2023.998 545 / 545 Output Total 350 / 550 425 / 425 Balance 06.23 1674.998 / 1474.998 120 / 120 Weight 58.014 kg 59.557 kg 59.534 kg Constitutional Constitutional: no acute distress *Routine HEENT Exam Head: Present normocephalic Eye: Present EOMI and PERRL ENT: Present mucous membranes moist *Routine Neck Exam Neck: Present supple; Absent lymphadenopathy *Routine Respiratory Exam Respiratory: Present CTA bilaterally *Routine Cardiovascular Exam Cardiovascular: Present RRR *Routine Abdominal Exam Abdominal: Present soft and normoactive bowel sounds; Absent tenderness *Routine Extremities Exam Extremities: Absent cyanosis, clubbing or edema Comments: Significant muscular atrophy, deconditioning of lower extremities. *Routine Skin Exam Skin: Present warm; Absent rash *Routine Neurological Exam Neurological: Present alert and oriented X3 Assessment and Plan *Assessment and plan (1) Metastatic cancer: Status: Acute Category: Medical Code(s): C79.9 - Secondary malignant neoplasm of unspecified site (2) STEMI (ST elevation myocardial infarction): Status: Acute Category: Medical Code(s): I21.3 - ST elevation (STEMI) myocardial infarction of unspecified site (3) Physical deconditioning: Status: Acute Category: Medical Code(s): R53.81 - Other malaise Plan Destiney Lancaster is a 58-year-old female who was admitted for STEMI type II, severe physical deconditioning. Arrived as a transfer from [facility]. #STEMI type II ? On arrival, patient had ST elevation in lead III with reciprocal leads findings. Troponins peaked at 0.23, downtrending. Chest pain-free. ? Dr. Muller was consulted, and given that the EKG showed A-fib RVR he recommended starting esmolol drip. Repeat EKG showed NSR. Troponins downtrending. ? Started metoprolol to tartrate 25 mg twice daily, weaned off esmolol drip. ? Continue aspirin 81 mg, atorvastatin 80 mg. ? Follow-up ECHO on Thursday. ? Patient wants to pursue hospice care in the setting of diffuse metastatic cancer, updated Dr. Muller and will forego [facility]. #Diffuse metastatic cancer #History of breast, colon cancer ? Patient formally under went chemotherapy for breast, colon cancer with reported remission at . ? Unfortunately, CT chest/abdomen/pelvis shows diffuse metastatic lesions and lung pleura, lower extremity bones, with pathological fractures in right iliac wing, right pubic tubercle. ? I had an extensive conversation regarding findings with patient today, she was initially tearful but understood the gravity of the situation especially with a history of colon cancer. She specified that she does not want to pursue treatment for cancer and wants to pursue hospice care at this time. She understood the risks and benefits of pursuing hospice care. ? Case management consulted, assisting with hospice discussions. #Severe physical deconditioning ? PT/OT consulted, recommended SNF. However, patient is not keen at this time. Will revisit this conversation tomorrow. She prefers to go home. Lives with . #Enlarged right thyroid gland ? Follow-up thyroid ultrasound. TSH normal. DNR/DNI Lovenox 40 mg
[2024-07-10 21:45] LABS: POC Glucose,Bedside 105 (70-110)
--- NOTE | 2024-07-10 23:37 | PC.NURSE ---
Patient arrived to floor via stretcher from ICU unit at 20:23.
[2024-07-11] VITALS: PULSE 75
[2024-07-11] MEDS: HYDROCODONE/APAP 5/325 MG TABLET 1 TAB PO (02:28)
[2024-07-11 03:45] VITALS: BP 131/86; PULSE 80; RESP 18; TEMP 36.8; O2SAT 98
[2024-07-11 04:00] VITALS: PULSE 70; BMI 22.3
--- NOTE | 2024-07-11 05:41 | PC.NURSE ---
Pt A&OX3. She has tolerated 2L throughout the shift. Expiratory wheezing heard in lungs and bowel sounds active. Pt did have a BM this shift. Wound noted to bottom and new dressing applied. Purewick in place draining well. Currently resting in bed with call light within reach.
--- NOTE | 2024-07-11 06:00 | US_ITS ---
FINAL REPORT TECHNIQUE: Real-time grayscale and color ultrasound of the thyroid was performed. CLINICAL HISTORY: Enlarged thyroid right COMPARISON: None FINDINGS: The thyroid gland measures 51 x 18 x 18 mm on the right and 32 x 14 x 12 mm on the left. The isthmus measures 6 mm. The parenchyma is unremarkable . Nodules: Multiple nodules are seen in the right lobe of the thyroid. There is a 1.5 cm solid hypoechoic TR 4 nodule and a 1.6 cm ovoid solid isoechoic TR 3 nodule. The left thyroid lobe was unremarkable. IMPRESSION: 2 nodules in the right lobe of the thyroid. Per TI-RADS criteria, recommend needle sampling of the 1.5 cm TR 4 nodule. Reviewed, Interpreted and Dictated by Chin Black MD Transcribed by Kathy Crawford Authenticated and [facility]
[2024-07-11 06:51] LABS: POC Glucose,Bedside 99 (70-110)
[2024-07-11 06:54] LABS: Basophils % 0.6 % (0.1-2.0); Eosinophils % 0.9 % (0.1-12.0); Hematocrit 40.8 % (37.0-47.0); Hemoglobin 12.5 g/dL (12.2-16.2); Lymphocytes # 0.9 K/mm3 (0.7-4.5); Lymphocytes % 27.9 % (10-50); Mean Corpuscular HGB Conc 30.6 g/dL (31.8-35.4); Mean Corpuscular Hemoglobin 27.8 pg (27.0-31.2); Mean Corpuscular Volume 90.7 fl (81-99); Mean Platelet Volume 10.1 fl (7.4-10.4); Monocytes # 0.4 K/mm3 (0.1-1.0); Neutrophils # 1.9 K/mm3 (1.8-7.8); Platelet Count 217 K/mm3 (142-424); Red Cell Distribution Width 14.1 % (11.5-17.5); White Blood Count 3.2 K/mm3 (4.8-10.8)
[2024-07-11 06:56] LABS: Albumin Level 3.2 g/dl (3.5-5.0); Chloride 102 mmol/L (98-107); Potassium 3.4 mmoL/L (3.5-5.1); Sodium 135 mmol/L (136-145)
[2024-07-11 06:58] LABS: Blood Urea Nitrogen 11 mg/dl (7-17); Creatinine Clearance Estimated 112 mL/min (50-200); Estimated Glomerular Filt Rate 126 ml/min (>60); GFR (African American) 152 ML/MIN (>60)
[2024-07-11 06:59] LABS: Alanine Aminotransferase 14 U/L (12-78); Albumin/Globulin Ratio 1.2 (1.1-1.8); Alkaline Phosphatase 277 U/L (38-126); Anion Gap 5.4 mEq/L (5-15); Aspartate Amino Transferase 32 U/L (14-36); Bilirubin,Total 0.6 mg/dl (0.2-1.3); Calcium 9.4 mg/dl (8.4-10.2); Carbon Dioxide 31 mmol/L (22.0-30.0); Globulin 2.6 g/dL (1.3-3.2); Glucose 100 mg/dl (74-100); Total Protein,Serum 5.8 g/dl (6.3-8.2)
[2024-07-11 08:00] VITALS: BP 162/78; PULSE 80; PULSE 89; RESP 16; TEMP 36.8; O2SAT 97
--- NOTE | 2024-07-11 08:53 | SW/DCPLANNER ---
Addendum entered by Sara Garcia 07/11/24 14:29: Per Mary DME will be set up in 10 minutes. I have updated patient's nurse and will plan for discharge home via ambulance. Addendum entered by Sara Garcia 07/11/24 13:08: Per patient's the plan is for patient's daughter (Phoebe Ann) to take patient home w/ her. Phoebe [phone] [place] [address] [place] [address] Addendum entered by Sara Garcia 07/11/24 12:16: Per patient/ the plan was for patient to go to [facility] today. Niece expressed to Hospice that she is not able to care for patient at home. I am waiting to hear back from patient/ regarding other family member discussions. Patient is not interested in LTC and stated that patient can not return home due to hoarding situation. Addendum entered by Sara Garcia 07/11/24 11:21: Per Mary w/ Hospice DME (home O2 and hospital bed) will be delivered to patient's home today and Hospice nurse will admit patient once she returns home. I will update patient regarding this plan. Per MD patient will discharge home today. Original Note: I spoke w/ this patient and her regarding plans once medically stable for discharge. Due to metastatic disease patient prefers to return home w/ and Hospice services. Patient information has been faxed to [facility] this AM.
[2024-07-11] MEDS: FOLIC ACID 1MG TABLET 1 MG PO (09:14)
[2024-07-11] MEDS: METOPROLOL TARTRATE 25MG TABLET 25 MG PO (09:15)
[2024-07-11] MEDS: CEFTRIAXONE 1 GM 1 GM in 0.9 % SODIUM CHLORIDE 50 ML IV (09:15)
[2024-07-11] MEDS: DOCUSATE SODIUM 100 MG CAPSULE PO (09:15)
[2024-07-11] MEDS: ATORVASTATIN 40MG TABLET 40 MG PO (09:15)
[2024-07-11] MEDS: ENOXAPARIN 40MG/0.4ML SYRINGE 40 MG SUBCUT (09:15)
[2024-07-11] MEDS: ASPIRIN EC 81MG TABLET 81 MG PO (09:15)
[2024-07-11 09:33] LABS: Adenovirus,PCR Not Detected (NotDetected); Bordetella Pertussis Not Detected (NotDetected); Chlamydophila Pneumoniae, PCR Not Detected (NotDetected); Coronavirus 19, PCR Not Detected (NotDetected); Coronavirus 229E Not Detected (NotDetected); Coronavirus NL63 Not Detected (NotDetected); Coronavirus OC43 Not Detected (NotDetected); Coronovirus HKU1,PCR Not Detected (NotDetected); Human Metapneumovirus Not Detected (NotDetected); Influenza A, PCR Not Detected (NotDetected); Influenza AH1, 2009 Not Detected (NotDetected); Influenza AH1, PCR Not Detected (NotDetected); Influenza AH3,PCR Not Detected (NotDetected); Influenza B, PCR Not Detected (NotDetected); Mycoplasma Pneumoniae, PCR Not Detected (NotDetected); Parainfluenza 1, PCR Not Detected (NotDetected); Parainfluenza 2, PCR Not Detected (NotDetected); Parainfluenza 3, PCR Not Detected (NotDetected); Parainfluenza 4, PCR Not Detected (NotDetected); Respiratory Syncytial Virus Not Detected (NotDetected); Rhinovirus/Enterovirus Not Detected (NotDetected)
--- NOTE | 2024-07-11 10:36 | HMH.OTEV ---
OT Inpatient Evaluation Rehab OT IP Evaluation Start: 07/08/24 20:32 Freq: ONCE Status: Active Protocol: Document 07/11/24 09:50 OSVALDOSCHENECTADY (Rec: 07/11/24 10:15 [facility] [id number]) Rehab OT IP Assessment Subjective History Pt oriented x 2 on arrival. Pt agreeable to engage in therapy evaluation. Pt admitted on 07/08/24 due to NSTEMI. Pt's present and supportive during evaluation. History and Physical: This is a 58-year-old female who has a past medical history significant for diabetes, hypertension, breast cancer, COPD who presents from [facility] due to being found down for 3 days. Due to patient being found down for 3 days, she was transition to [facility] for evaluation. While at [facility], patient was noted to have a high troponin of 370, she was positive for urinary tract infection, and patient CPK was elevated. Due to these findings, patient was transition to p.o. tomorrow for further management. During my evaluation of the patient, patient states she fell 3 days ago. She states she slid out of the bed and just laid on the floor. She states she remembers the fall. She states that she attempted to get up multiple times but could not get up. Her offered to help but she did not accept his help. She states he would bring her supplement to eat or drink. She states that she has been having some lower extremity weakness for some time. She does not endorse to getting progressively worse she just notes that it has been there for prolonged period of time. She also voices having some pain to her right hip. Patient states she has chronic pain to her right hip but she noticed that it was more intense after a fall. She is currently denying any syncope, lightheadedness, dizziness, chest pain, shortness of breath, dyspnea, nausea, vomiting, PND, orthopnea, or diarrhea. Additional pertinent vitals obtained at [facility] include a potassium of 3.4, blood glucose of 190, calcium of 12, total bilirubin 1.9, white blood cells too numerous to count with urinalysis and urinalysis positive for nitrates, EKG showed a sinus tach, QTc of 406, Q waves in the inferior leads, possible left ventricular hypertrophy, biphasic T waves in the anterolateral, normal axis, alkaline phosphatase 113, and troponin was 372. Subjective I am weak. Prior to being in the hospital , pt lived at home with her . Pt claims normally she is independent with ADLs such as dressing, bathing, and feeding. However, she is dependent upon her for completion of IADLs. Pt no longer drives. Pt is normally not on oxygen. Objective Patient Orientation Person,Birthday Right Upper Extremity Gross ROM Min Limitation <25% Left Upper Extremity Gross ROM Min Limitation <25% Shoulder ROM Limitations Muscle Weakness Elbow ROM Limitations Muscle Weakness Wrist Limitations of Range of Motion Muscle Weakness Bed Mobility bed mobility-scooting,bed mobility - supine/sit Assist Level Maximum x 1 (75% assist) Rehab OT IP prob,goals,plan Problems Date of Evaluation: 07/11/24 OT IP Problems Bed Mobility,Transfers,Balance ,Self care,Safety Rehab Potential Rehab Potential Fair Equipment Needs Assistive Devices Rolling / Wheeled Walker Plan OT intervention Plan Bed Mobility,Transfers,Balance ,Self care,Safety,Therapeutic Exercise OT Plan Frequency Daily Duration LOS Discharge Goals Bed Mobility Ability Assistance x1 Sit to Stand Chair Transfer Ability Maximum x 1 (75% assist) Chair Transfer Ability Maximum x 1 (75% assist) Chair Transfer Technique Stand Pivot Chair Transfer Assistive Devices Rolling Walker Lower Body Dressing Ability Moderate Assistance Upper Body Dressing Ability Minimal Assistance Bathing Ability Moderate Assistance Performing Toilet Hygiene Ability Moderate Assistance Overall Commode/Toilet Transfer Ability Moderate Assistance Commode/Toilet Transfer Technique Sit to/from Ambulatory Commode/Toilet Transfer Assistive Grab Bars Devices Oral Care Assist Moderate Assistance Decrease in Endurance Yes Discharge Plan OT Discharge Plan Pt will continue to be seen for OT services while at [facility]. At this time, pt would benefit most for short term rehab at [facility] following hospital stay. However, family reports they are contemplating hospice. If patient does not choose hospice, therapist recommends continued skilled therapy services. Continued skilled therapy is important in order for patient to improve strength, safety, endurance, ADL independence, and functional transfers to reach OF. Eval Complexity Eval Charge Codes 38014 - Moderate Complexity PHYSICIAN CERTIFICATION: I certify the specified therapy services for Destiney Lancaster are required, authorized, and reviewed every 30 days.
[2024-07-11 10:58] LABS: POC Glucose,Bedside 105 (70-110)
[2024-07-11 11:18] VITALS: BP 166/72; PULSE 85; RESP 19; TEMP 36.8; O2SAT 90
[2024-07-11 11:27] VITALS: BMI 22.3
--- NOTE | 2024-07-11 11:41 | P.DS_ITS ---
General Admission date:: 07/08/24 HPI HPI HPI: This is a 58-year-old female who has a past medical history significant for diabetes, hypertension, breast cancer, COPD who presents from [facility] due to being found down for 3 days. Due to patient being found down for 3 days, she was transition to [facility] for evaluation. While at [facility], patient was noted to have a high troponin of 370, she was positive for urinary tract infection, and patient CPK was elevated. Due to these findings, patient was transition to p.o. tomorrow for further management. During my evaluation of the patient, patient states she fell 3 days ago. She states she slid out of the bed and just laid on the floor. She states she remembers the fall. She states that she attempted to get up multiple times but could not get up. Her offered to help but she did not accept his help. She states he would bring her supplement to eat or drink. She states that she has been having some lower extremity weakness for some time. She does not endorse to getting progressively worse she just notes that it has been there for prolonged period of time. She also voices having some pain to her right hip. Patient states she has chronic pain to her right hip but she noticed that it was more intense after a fall. She is currently denying any syncope, lightheadedness, dizziness, chest pain, shortness of breath, dyspnea, nausea, vomiting, PND, orthopnea, or diarrhea. Additional pertinent vitals obtained at [facility] include a potassium of 3.4, blood glucose of 190, calcium of 12, total bilirubin 1.9, white blood cells too numerous to count with urinalysis and urinalysis positive for nitrates, EKG showed a sinus tach, QTc of 406, Q waves in the inferior leads, possible left ventricular hypertrophy, biphasic T waves in the anterolateral, normal axis, alkaline phosphatase 113, and troponin was 372. Hospital Course Hospital Course Hospital Course: Destiney Lancaster is a 58-year-old female who was admitted for STEMI type II, severe physical deconditioning. Arrived as a transfer from [facility]. #STEMI type II ? On arrival, patient had ST elevation in lead III with reciprocal leads findings. Troponins peaked at 0.23, downtrending. Chest pain-free. ? Dr. Muller was consulted, and given that the EKG showed A-fib RVR he recommended starting esmolol drip. Repeat EKG showed NSR. Troponins downtrending. ? Started metoprolol to tartrate 25 mg twice daily, weaned off esmolol drip. ? Continue aspirin 81 mg, atorvastatin 80 mg. ? Patient wants to pursue hospice care in the setting of diffuse metastatic cancer, updated Dr. Muller and will forego [facility]. Patient is also not a candidate for PCI given hypercoagulable state and high risk of stent thrombosis. #Diffuse metastatic cancer #History of breast, colon cancer ? Patient formally under went chemotherapy for breast, colon cancer with reported remission at . ? Unfortunately, CT chest/abdomen/pelvis shows diffuse metastatic lesions and lung pleura, lower extremity bones, with pathological fractures in right iliac wing, right pubic tubercle. ? I had an extensive conversation regarding findings with patient, she was initially tearful but understood the gravity of the metastatic cancer especially with a reported history of colon cancer. She specified that she does not want to pursue treatment for cancer and wants to pursue hospice care at this time. She understood the risks and benefits of pursuing hospice care. ? Case management consulted, assisted with setting up home hospice for patient. #Severe physical deconditioning ? PT/OT consulted, recommended SNF. Likely secondary to metastatic cancer to lower extremity bones. Patient wants to pursue hospice care. Not interested in rehab. #Enlarged right thyroid gland ? TSH normal. ? Thyroid ultrasound revealed 2 nodules in the right lobe of the thyroid. Per TI-RADS criteria, recommend needle sampling of the 1.5 cm TR 4 nodule. However, patient wants to pursue hospice care. Total time spent on discharge: 36 minutes on chart review, counseling, documentation, and direct care with patient. Exam Data for Last 24 hours Vital signs and Labs for Last 24 Hours: Temp Pulse Resp BP Pulse Ox O2 Del Method O2 Flow Rate 98.2 F 85 19 166/72 H 90 L Room Air 2 07/11/24 11:18 07/11/24 11:18 07/11/24 11:18 07/11/24 11:18 07/11/24 11:18 07/11/24 11:18 07/11/24 11:00 Laboratory Results - last 24 hr 07/10/24 11:51: POC Glucose 98 07/10/24 16:38: POC Glucose 139 H 07/10/24 21:20: POC Glucose 105 07/11/24 06:28: POC Glucose 99 07/11/24 06:29: WBC 3.2 L, RBC 4.50, Hgb 12.5, Hct 40.8, MCV 90.7, MCH 27.8, MCHC 30.6 L, RDW 14.1, Plt Count 217, MPV 10.1, Neut % (Auto) 59.0, Lymph % (Auto) 27.9, [place] % (Auto) 11.0 H, Eos % (Auto) 0.9, Baso % (Auto) 0.6, Neut # (Auto) 1.9, Lymph # (Auto) 0.9, [place] # (Auto) 0.4, Eos # (Auto) 0.0, Baso # (Auto) 0.0, Sodium 135 L, Potassium 3.4 L, Chloride 102, Carbon Dioxide 31 H, Anion Gap 5.4, BUN 11 D, Creatinine 0.50 L, Estimated Creat Clear 112, Estimated GFR 126, Est GFR ( Amer) 152, Glucose 100, Calcium 9.4, Magne sium 2.0, Total Bilirubin 0.6, AST 32, ALT 14, Alkaline Phosphatase 277 H, Total Protein 5.8 L, Albumin 3.2 L, Globulin 2.6, Albumin/Globulin Ratio 1.2 07/11/24 09:25: Chlamy pneumoniae PCR Not detected, Adenovirus (PCR) Not detected, B. pertussis DNA (PCR) Not detected, Coronavirus OC43 (PCR) Not detected, Coronavirus HKU1 (PCR) Not detected, Coronavirus 229E (PCR) Not detected, SARS-CoV-2 (PCR) Not detected, Coronavirus NL63 (PCR) Not detected, Human Metapneumovir PCR Not detected, Influenza A (H1) PCR Not detected, Influ A (H1N1/09) PCR Not detected, Influenza A (H3) PCR Not detected, Influenza Type A (PCR) Not detected, Influenza Type B (PCR) Not detected, M. pneumoniae (PCR) Not detected, Parainfluenza 1 (PCR) Not detected, Parainfluenza 2 (PCR) Not detected, Parainfluenza 3 (PCR) Not detected, Parainfluenza 4 (PCR) Not detected, RSV (PCR) Not detected, Entero/Rhino (PCR) Not detected 07/11/24 10:51: POC Glucose 105 I & O for Last 24 hours: Intake & Output 07/08/24 07/09/24 07/10/24 07/11/24 23:59 23:59 23:59 23:59 Intake Total 1.16 / 1.16 2024.998 / 2024.998 545 / 695 150 / 150 Output Total 350 / 550 425 / 425 Balance 1.16 / 1.16 1674.998 / 1474.998 120 / 270 150 / 150 Weight 58.014 kg 59.557 kg 59.534 kg 59.33 kg Microbiology Reports for the Last 24 Hours: Microbiology 07/09/24 03:20 Urine,Catheterized Urine Culture - Final Constitutional Constitutional: no acute distress *Routine HEENT Exam Head: Present normocephalic Eye: Present EOMI and PERRL ENT: Present mucous membranes moist *Routine Neck Exam Neck: Present supple; Absent lymphadenopathy *Routine Respiratory Exam Respiratory: Present CTA bilaterally *Routine Cardiovascular Exam Cardiovascular: Present RRR *Routine Abdominal Exam Abdominal: Present soft and normoactive bowel sounds; Absent tenderness *Routine Extremities Exam Extremities: Absent cyanosis, clubbing or edema Comments: Significant muscular atrophy, deconditioning of lower extremities. *Routine Skin Exam Skin: Present warm; Absent rash *Routine Neurological Exam Neurological: Present alert and oriented X3 Results Data Completed and Pending Labs on day of discharge: Labs from last 24 hours 07/11/24 07/11/24 07/11/24 10:51 09:25 06:29 WBC 3.2 L RBC 4.50 Hgb 12.5 Hct 40.8 MCV 90.7 MCH 27.8 MCHC 30.6 L RDW 14.1 Plt Count 217 MPV 10.1 Neut % (Auto) 59.0 Lymph % (Auto) 27.9 [place] % (Auto) 11.0 H Eos % (Auto) 0.9 Baso % (Auto) 0.6 Neut # (Auto) 1.9 Lymph # (Auto) 0.9 [place] # (Auto) 0.4 Eos # (Auto) 0.0 Baso # (Auto) 0.0 Sodium 135 L Potassium 3.4 L Chloride 102 Carbon Dioxide 31 H Anion Gap 5.4 BUN 11 D Creatinine 0.50 L Estimated Creat Clear 112 Estimated GFR 126 Est GFR ( Amer) 152 Glucose 100 POC Glucose 105 Calcium 9.4 Magnesium 2.0 Total Bilirubin 0.6 AST 32 ALT 14 Alkaline Phosphatase 277 H Total Protein 5.8 L Albumin 3.2 L Globulin 2.6 Albumin/Globulin Ratio 1.2 Chlamy pneumoniae PCR Not detected Adenovirus (PCR) Not detected B. pertussis DNA (PCR) Not detected Coronavirus OC43 (PCR) Not detected Coronavirus HKU1 (PCR) Not detected Coronavirus 229E (PCR) Not detected SARS-CoV-2 (PCR) Not detected Coronavirus NL63 (PCR) Not detected Human Metapneumovir PCR Not detected Influenza A (H1) PCR Not detected Influ A (H1N1) PCR Not detected Influenza A (H3) PCR Not detected Influenza Type A (PCR) Not detected Influenza Type B (PCR) Not detected M. pneumoniae (PCR) Not detected Parainfluenza 1 (PCR) Not detected Parainfluenza 2 (PCR) Not detected Parainfluenza 3 (PCR) Not detected Parainfluenza 4 (PCR) Not detected RSV (PCR) Not detected Entero/Rhino (PCR) Not detected 07/11/24 07/10/24 07/10/24 06:28 21:20 16:38 WBC RBC Hgb Hct MCV MCH MCHC RDW Plt Count MPV Neut % (Auto) Lymph % (Auto) [place] % (Auto) Eos % (Auto) Baso % (Auto) Neut # (Auto) Lymph # (Auto) [place] # (Auto) Eos # (Auto) Baso # (Auto) Sodium Potassium Chloride Carbon Dioxide Anion Gap BUN Creatinine Estimated Creat Clear Estimated GFR Est GFR ( Amer) Glucose POC Glucose 99 105 139 H Calcium Magnesium Total Bilirubin AST ALT Alkaline Phosphatase Total Protein Albumin Globulin Albumin/Globulin Ratio Chlamy pneumoniae PCR Adenovirus (PCR) B. pertussis DNA (PCR) Coronavirus OC43 (PCR) Coronavirus HKU1 (PCR) Coronavirus 229E (PCR) SARS-CoV-2 (PCR) Coronavirus NL63 (PCR) Human Metapneumovir PCR Influenza A (H1) PCR Influ A (H1N1) PCR Influenza A (H3) PCR Influenza Type A (PCR) Influenza Type B (PCR) M. pneumoniae (PCR) Parainfluenza 1 (PCR) Parainfluenza 2 (PCR) Parainfluenza 3 (PCR) Parainfluenza 4 (PCR) RSV (PCR) Entero/Rhino (PCR) 07/10/24 11:51 WBC RBC Hgb Hct MCV MCH MCHC RDW Plt Count MPV Neut % (Auto) Lymph % (Auto) [place] % (Auto) Eos % (Auto) Baso % (Auto) Neut # (Auto) Lymph # (Auto) [place] # (Auto) Eos # (Auto) Baso # (Auto) Sodium Potassium Chloride Carbon Dioxide Anion Gap BUN Creatinine Estimated Creat Clear Estimated GFR Est GFR ( Amer) Glucose POC Glucose 98 Calcium Magnesium Total Bilirubin AST ALT Alkaline Phosphatase Total Protein Albumin Globulin Albumin/Globulin Ratio Chlamy pneumoniae PCR Adenovirus (PCR) B. pertussis DNA (PCR) Coronavirus OC43 (PCR) Coronavirus HKU1 (PCR) Coronavirus 229E (PCR) SARS-CoV-2 (PCR) Coronavirus NL63 (PCR) Human Metapneumovir PCR Influenza A (H1) PCR Influ A (H1N1/09) PCR Influenza A (H3) PCR Influenza Type A (PCR) Influenza Type B (PCR) M. pneumoniae (PCR) Parainfluenza 1 (PCR) Parainfluenza 2 (PCR) Parainfluenza 3 (PCR) Parainfluenza 4 (PCR) RSV (PCR) Entero/Rhino (PCR) DS: Diagnosis Discharge Diagnosis (1) Metastatic cancer: Status: Acute Code(s): C79.9 - Secondary malignant neoplasm of unspecified site (2) STEMI (ST elevation myocardial infarction): Status: Acute Code(s): I21.3 - ST elevation (STEMI) myocardial infarction of unspecified site (3) Physical deconditioning: Status: Acute Code(s): R53.81 - Other malaise Meds Home Medications and Allergies Home Medications ?Medication ?Instructions ?Recorded ?Confirmed ?Type aspirin 81 mg tablet,delayed 81 mg PO DAILY 30 days #30 tabs 07/11/24 Rx release atorvastatin 40 mg tablet 40 mg PO DAILY 30 days #30 tabs 07/11/24 Rx folic acid 1 mg tablet 1 mg PO DAILY 30 days #30 tabs 07/11/24 Rx New Prescriptions to Start Prescriptions: Luis Daniel Redmond atorvastatin Luis Daniel Saenz folic acid Luis Daniel Saenz Allergies Allergy/AdvReac Type Severity Reaction Status Date / Time No Known Allergies Allergy Unverified 07/11/24 07:10 Discharge Plan Disposition Patient Disposition: Hospice - Home Condition: Fair Discharge Order Discharge Orders: Discharge Order (Routine); Ordered 07/11/24 Ordered By: Luis Daniel Saenz Follow up Plan Prescriptions/Medication Reconciliation: New atorvastatin 40 mg Tablet 40 mg PO DAILY 30 Days Qty: 30 0RF aspirin 81 mg Tablet,Delayed Release (Dr/Ec) 81 mg PO DAILY 30 Days Qty: 30 0RF folic acid 1 mg Tablet 1 mg PO DAILY 30 Days Qty: 30 0RF Problem Reconciliation Problems Reviewed?: Yes Patient Discharge Instructions Patient Instructions: DI for Urinary Tract Infection (UTI), DI for Chest Pain, DI for Rhabdomyolysis Print Language: Icelandic Providers Primary Care Provider: Gilbert Paez Admit Provider: Luis Daniel Saenz Attending Provider: Luis Daniel Saenz
--- NOTE | 2024-07-11 12:10 | PC.NURSE ---
o2 room air saturation was 90%
--- NOTE | 2024-07-11 14:04 | HMH.PTWOUND ---
Rehab Inpt Wound Evaluation Rehab IP Wound Evaluation Start: 07/09/24 01:03 Freq: ONCE Status: Active Protocol: Document 07/11/24 14:02 LUIS MIGUEL (Rec: 07/11/24 14:04 [place] [id number]) Rehab PT Wound Assessment Subjective Subjective Per H&P, This is a 58-year- old female who has a past medical history significant for diabetes, hypertension, breast cancer, COPD who presents from [facility] due to being found down for 3 days. Due to patient being found down for 3 days, she was transition to [facility] for evaluation. While at [facility], patient was noted to have a high troponin of 370, she was positive for urinary tract infection, and patient CPK was elevated. Due to these findings, patient was transition to p.o. tomorrow for further management. She presents with large area of dry skin and excoriation around B buttocks. Currently no open wounds noted as everything is stable and dry. Plan/Recommendation Comment Currently there is no need for debridement of any devitalized tissue. Wound care being performed by [facility] staff is appropriate and staff are performing all pressure relief as necessary per protocols. Eval Complexity Eval Charge Codes 96896 - High Complexity PHYSICIAN CERTIFICATION: I certify the specified therapy services for Destiney Lancaster are required, authorized, and reviewed every 30 days.
== END 2024-07-11 15:21 | disposition hospice, home (50) | DRG 281 ==
LOC: ICU 07-09 05:32 → 2ND 07-09 15:32 → ICU 07-09 15:32 → 2ND 07-10 20:23
PROVIDERS: Nurse Practitioner Family; Admitting Provider Student in an Organized Health Care Education/Training Program; PCP Family Medicine; Visit Provider Student in an Organized Health Care Education/Training Program
DX: I21.A1 Myocardial infarction type 2 (principal); C18.9 Malignant neoplasm of colon, unspecified; C80.0 Disseminated malignant neoplasm, unspecified; M84.58XA Pathological fracture in neoplastic disease, other specified site, initial encounter for fracture; M62.82 Rhabdomyolysis; J44.9 Chronic obstructive pulmonary disease, unspecified; E11.9 Type 2 diabetes mellitus without complications; C50.919 Malignant neoplasm of unspecified site of unspecified female breast; F17.210 Nicotine dependence, cigarettes, uncomplicated; W06.XXXA Fall from bed, initial encounter; Y92.003 Bedroom of unspecified non-institutional (private) residence as the place of occurrence of the external cause; I10 Essential (primary) hypertension; E04.2 Nontoxic multinodular goiter; Z79.82 Long term (current) use of aspirin; Z79.02 Long term (current) use of antithrombotics/antiplatelets; Z79.899 Other long term (current) drug therapy; Z74.1 Need for assistance with personal care
CPT/HCPCS: 36415; 71045; 71275; 73502; 73552; 74177; 76536; 80048; 80053; 80061; 81001; 82378; 82550; 82607; 82746; 82962; 83036; 83735; 84443; 84484; 85025; 85610; 87086; 87633; 93005; 97163; 97166; J0696; J1650; J7030; Q9967